=== PATIENT | male | born 1965 | race Caucasian/White ===

== ENCOUNTER 2017-07-04 19:51 | Emergency (ER) | payer SELFPAY ==
[2017-07-04 20:42] VITALS: BP 147/89; RESP 18; TEMP 98.7
--- NOTE | 2017-07-04 21:40 | ED PDOC ---
Arrival/HPI - General Historian: Patient - History of Present Illness Time/Duration: Other (1 day) Symptom Onset: Gradual Symptom Course: Worsening <Helen Conway - Last Filed: 07/04/17 22:12> <Homer Frankel - Last Filed: 07/04/17 22:34> - General Chief Complaint: Cough, Cold, Congestion Time Seen by Provider: 07/04/17 20:37 - History of Present Illness Narrative History of Present Illness (Text): 07/04/17 21:38 51-year-old male presents today with a one-day history of cough. Patient states cough started last night. He is complaining of nasal congestion and sore throat. Patient denies fevers or chills. Patient states today he noticed that he had green mucus/phlegm. Patient states patient at times will feel pain with cough. He denies shortness of breath or palpitations. Patient denies dizziness or weakness. Patient states all of his family members are sick with similar symptoms. Patient denies pain at present time. No other complaints (Helen Conway) Past Medical History - Provider Review Nursing Documentation Reviewed: Yes - Travel History Have you recently traveled outside [place] w/in the past 3 mons?: No - Tetanus Immunization Tetanus Immunization: Unknown - Cardiac Hx Cardiac Disorders: Yes Hx Hypertension: Yes - Pulmonary Hx Respiratory Disorders: No - Neurological Hx Neurological Disorder: No - HEENT Hx HEENT Disorder: No - Renal Hx Renal Disorder: No - Endocrine/Metabolic Hx Endocrine Disorders: Yes (pre diabetes) - Hematological/Oncological Hx Blood Disorders: No - Integumentary Hx Dermatological Disorder: No - Musculoskeletal/Rheumatological Hx Musculoskeletal Disorders: No - Gastrointestinal Hx Gastrointestinal Disorders: No - Genitourinary/Gynecological Hx Genitourinary Disorders: No - Psychiatric Hx Psychophysiologic Disorder: No Hx Substance Use: No - Surgical History Hx Orthopedic Surgery: Yes (right shoulder post accident) - Anesthesia Hx Anesthesia: Yes Hx Anesthesia Reactions: No Hx Malignant Hyperthermia: No <Helen Conway - Last Filed: 07/04/17 22:12> Family/Social History - Physician Review Nursing Documentation Reviewed: Yes Family/Social History: Unknown Family HX Smoking Status: Never Smoked Hx Alcohol Use: No Hx Substance Use: No <Helen Conway - Last Filed: 07/04/17 22:12> Allergies/Home Meds <Helen Conway - Last Filed: 07/04/17 22:12> <Homer Frankel - Last Filed: 07/04/17 22:34> Allergies/Adverse Reactions: Allergies No Known Allergies Allergy (Verified 07/04/17 20:37) Review of Systems - Review of Systems Constitutional: absent: Fatigue, Fevers ENT: Sore Throat, Sinus Congestion Respiratory: Cough, Sputum. absent: SOB, Wheezing Cardiovascular: absent: Chest Pain, Palpitations Gastrointestinal: absent: Abdominal Pain, Nausea, Vomiting Genitourinary Male: absent: Dysuria Musculoskeletal: absent: Arthralgias Skin: absent: Rash, Pruritis Neurological: absent: Headache, Dizziness Psychiatric: absent: Anxiety, Depression, Suicidal Ideation <Steve Conwaykenneth Wells - Last Filed: 07/04/17 22:12> Physical Exam Vital Signs Reviewed: Yes Temperature: Afebrile Blood Pressure: Normal Pulse: Regular Respiratory Rate: Normal Appearance: Positive for: Well-Appearing, Non-Toxic, Comfortable Pain Distress: None Mental Status: Positive for: Alert and Oriented X 3 - Systems Exam Head: Present: Atraumatic Conjunctiva: Present: Normal Ears: Present: Normal, NORMAL TM, Normal Canal. No: Erythema Mouth: Present: Moist Mucous Membranes. No: Drooling, Trismus Pharnyx: Present: Normal. No: ERYTHEMA, EXUDATE, TONSILS ENLARGED, Peritonsilar Swelling, Uvular Deviation, Muffled/Hoarse Voice Nose (External): Present: Atraumatic Nose (Internal): Present: Normal Inspection Neck: Present: Normal Range of Motion, Trachea Midline. No: Lymphadenopathy Respiratory/Chest: Present: Clear to Auscultation, Good Air Exchange. No: Respiratory Distress, Accessory Muscle Use Cardiovascular: Present: Regular Rate and Rhythm, Normal S1, S2. No: Murmurs Abdomen: No: Tenderness Back: Present: Normal Inspection. No: Midline Tenderness, Paraspinal Tenderness Upper Extremity: Present: Normal ROM Lower Extremity: Present: Normal ROM Neurological: Present: GCS=15, Speech Normal Skin: Present: Warm, Dry, Normal Color. No: Rashes Psychiatric: Present: Alert, Oriented x 3 <Steve Conwaykenneth Wells - Last Filed: 07/04/17 22:12> Vital Signs Temp Pulse Resp BP Pulse Ox 07/04/17 20:25 98.7 F 80 18 147/89 97 Medical Decision Making <Helen Conway - Last Filed: 07/04/17 22:12> <Homer Frankel - Last Filed: 07/04/17 22:34> ED Course and Treatment: 07/04/17 21:40 Patient is nontoxic well-appearing in no distress. Vital signs are stable. cxr; wnl Zithromax I advised follow up with primary care physician within the next 2 days. I advised increase fluids and return if symptoms worsen persist or if new symptoms develop. Patient verbalizes understanding of discharge instructions and need for immediate followup. all aspects of this case were discussed the attending of record. IMPRESSION; cough Motrin one tablet every 6 hours as needed for pain/fever reduction Zithromax one tablet once daily x4 days Increase fluids Followup with primary care physician the next 2 days Return if symptoms worsen persist or if new symptoms develop (Helen Conway) - RAD Interpretation Radiology Orders: 07/04/17 20:38 CHEST TWO VIEWS (PA/LAT) [RAD] Stat - Medication Orders Current Medication Orders: Discontinued Medications Azithromycin (Zithromax) 500 mg PO STAT STA PRN Reason: Protocol Stop: 07/04/17 22:12 Last Admin: 07/04/17 22:25 Dose: 500 mg - PA / PITCH GATHERER / Resident Statement / has reviewed & agrees with the documentation as recorded. <Homer Frankel - Last Filed: 07/04/17 22:34> Disposition/Present on Arrival - Present on Arrival Any Indicators Present on Arrival: No History of DVT/PE: No History of Uncontrolled Diabetes: No Urinary Catheter: No History of Decub. Ulcer: No History Surgical Site Infection Following: None - Disposition Have Diagnosis and Disposition been Completed?: Yes Disposition Time: 21:43 Patient Plan: Discharge <Helen Conway - Last Filed: 07/04/17 22:12> <Homer Frankel - Last Filed: 07/04/17 22:34> - Disposition Diagnosis: Cough Disposition: HOME/ ROUTINE Condition: GOOD Discharge Instructions (ExitCare): Cough in Adults Additional Instructions: Motrin one tablet every 6 hours as needed for pain/fever reduction Zithromax one tablet once daily x4 days Increase fluids Followup with primary care physician the next 2 days Return if symptoms worsen persist or if new symptoms develop Prescriptions: Azithromycin [Zithromax] 250 mg PO DAILY #4 tab Ibuprofen [Motrin] 600 mg PO Q6H PRN #20 tab PRN Reason: pain/fever reduction Referrals: Mayra Lopez MD [Staff Provider] - [place] up with [place] [facility] [place] - Follow up with primary Forms: [employer] (Algerian), WORK NOTE
[2017-07-04 23:17] VITALS: PULSE 82; O2SAT 98
--- NOTE | 2017-07-05 09:17 | RAD ---
HISTORY: cough COMPARISON: No prior. TECHNIQUE: Chest PA and lateral FINDINGS: LUNGS: No active pulmonary disease. PLEURA: No significant pleural effusion identified. No pneumothorax apparent. CARDIOVASCULAR: Normal. OSSEOUS STRUCTURES: No significant abnormalities. VISUALIZED UPPER ABDOMEN: Normal. OTHER FINDINGS: None. IMPRESSION: No active disease.
== END 2017-07-04 23:16 | disposition home or self-care (01) ==
LOC: ED 19:51
DX: R05 Cough (principal); I10 Essential (primary) hypertension